=== PATIENT | female | born 1995 | race Caucasian/White ===

== ENCOUNTER 2016-07-06 03:40 | Emergency (ER) | payer OTHER ==
[2016-07-06] MEDS ORDERED: MORPHINE SULFATE 10 MG/ML SYRINGE IM STA (04:00)
--- NOTE | 2016-07-06 04:27 | ED ---
General Adult HPI - General Chief complaint: Fall Stated complaint: Fall/Head Injury Time Seen by Provider: 07/06/16 03:57 Source: patient, RN notes reviewed, old records reviewed Mode of arrival: ambulatory Limitations: no limitations - History of Present Illness Initial comments: This is a 20-year-old female here today for evaluation. Patient presents today for evaluation of fall. Follow head injury. Most of consciousness no drugs or alcohol. Patient complaining of posterior head and neck pain. Patient states she does have welt and hematomata back of her head no bleeding. Again no other complaints of pain or injury anywhere else, fall from standing in the table hitting the back of her head. - Related Data Home Medications Medication Instructions Recorded Confirmed No Known Home Medications [No 07/06/16 07/06/16 Known Home Medications] Allergies Allergy/AdvReac Type Severity Reaction Status Date / Time No Known Allergies Allergy Verified 07/06/16 03:56 Review of Systems ROS Statement: Those systems with pertinent positive or pertinent negative responses have been documented in the HPI. ROS Other: All systems not noted in ROS Statement are negative. Past Medical History Past Medical History: No Reported History History of Any Multi-Drug Resistant Organisms: None Reported Past Surgical History: Appendectomy Past Anesthesia/Blood Transfusion Reactions: No Reported Reaction Past Psychological History: No Psychological Hx Reported Smoking Status: Former smoker Past Alcohol Use History: None Reported Past Drug Use History: None Reported General Exam Limitations: no limitations General appearance: alert, in no apparent distress Head exam: Present: normocephalic, normal inspection. Absent: atraumatic ( Posterior cephalhematoma) Eye exam: Present: normal appearance, PERRL, EOMI. Absent: scleral icterus, conjunctival injection, periorbital swelling ENT exam: Present: normal exam, mucous membranes moist Neck exam: Present: normal inspection. Absent: tenderness, meningismus, lymphadenopathy Respiratory exam: Present: normal lung sounds bilaterally. Absent: respiratory distress, wheezes, rales, rhonchi, stridor Cardiovascular Exam: Present: regular rate, normal rhythm, normal heart sounds. Absent: systolic murmur, diastolic murmur, rubs, gallop, clicks GI/Abdominal exam: Present: soft, normal bowel sounds. Absent: distended, tenderness, guarding, rebound, rigid Extremities exam: Present: normal inspection, full ROM, normal capillary refill. Absent: tenderness, pedal edema, joint swelling, calf tenderness Back exam: Present: normal inspection Neurological exam: Present: alert, oriented X3, CN II-XII intact Psychiatric exam: Present: normal affect, normal mood Skin exam: Present: warm, dry, intact, normal color. Absent: rash Course Vital Signs 07/06/16 03:53 Temperature 99.7 F H Pulse Rate 100 Respiratory 16 Rate Blood Pressure 126/86 O2 Sat by Pulse 98 Oximetry - Reevaluation(s) Reevaluation #1: 07/06/16 04:27 Pain and headache are improved Medical Decision Making - Medical Decision Making 20 female here status post fall, troponin finding head, posterior occipital hematoma, no bleeding, CT brain and C-spine are negative for injury, pain is improved and patient be discharged home, to take Motrin and Tylenol for pain at home - Radiology Data Radiology results: report reviewed (CT brain and C-spine negative for acute disease), image reviewed Disposition Clinical Impression: Fall, Head injury, Hematoma of occipital surface of head Disposition: HOME SELF-CARE Condition: Good Instructions: Head Injury (ED), Hematoma (ED) Referrals: None,Stated [Primary Care Provider] - 1-2 days
--- NOTE | 2016-07-06 04:34 | CT ---
EXAMINATION TYPE: CT brain armando wo con DATE OF EXAM: 07/06/2016 4:18 AM COMPARISON: NONE HISTORY: pt was "rough-housing" and hit posterior head on table, no LOC CT DLP: head:1072.30 body:280.20 mGycm Automated exposure control for dose reduction was used. TECHNIQUE: CT scan of the head and cervical spine are performed without contrast. FINDINGS: Ventricles and sulci appear normal. There is no mass effect nor midline shift. There is n o sign of intracranial hemorrhage. Calvarium is intact. The cervical vertebra have normal alignment. Posterior elements are intact. Disc spaces are well-main tained. Skull base appears intact. There is no evidence for fracture. IMPRESSION: Normal CT scan of the brain. Normal CT scan of the cervical spine.
[2016-07-06 05:04] VITALS: BP 129/88; PULSE 85; RESP 18; TEMP 97.8
== END 2016-07-06 05:30 | disposition home or self-care (01) ==
LOC: EC 03:40
DX: S00.03XA Contusion of scalp, initial encounter (principal); M54.2 Cervicalgia; Z87.891 Personal history of nicotine dependence; W01.198A Fall on same level from slipping, tripping and stumbling with subsequent striking against other object, initial encounter; Y92.009 Unspecified place in unspecified non-institutional (private) residence as the place of occurrence of the external cause
CPT/HCPCS: 72125; 70450; 99284; 96372; J2270

== ENCOUNTER 2017-06-20 16:18 | Emergency (ER) | payer OTHER ==
[2017-06-20 16:24] VITALS: RESP 18
[2017-06-20] MEDS ORDERED: MAG HYDROX/AL HYDROX/SIMETH 30 ML, HYOSCYAMINE ELIXIR 10 ML, CIMETIDINE HCL 300 MG, LID... PO STA ×4 (17:31)
--- NOTE | 2017-06-20 17:36 | ED ---
General Adult HPI - General Chief complaint: Chest Pain Stated complaint: Chest Pain Time Seen by Provider: 06/20/17 17:20 Source: patient, RN notes reviewed Mode of arrival: ambulatory Limitations: no limitations - History of Present Illness Initial comments: 21-year-old female presents to the emergency department with a chief complaint of a chest pain. in the epigastric area and radiates on the chest. She states that she's had this on and off for the last month. She has had some episodes of vomiting with it. She states coughing seems to make it worse. Patient resources well. She states that she has no shortness of breath with this. She denies any health history. She states that she hasn't had any fever chills with it. She states there is no family significant history of young age of chest issues. She states she was concerned because he continues to want for the last month or so so she thought that she should be evaluated. Patient states that she does nurses worsen in relation to food. Patient denies any recent fever, chills, shortness of breath, back pain, numbness or tingling, dysuria or hematuria, constipation or diarrhea, headaches or visual changes, or any other current symptoms. - Related Data Previous Rx's Medication Instructions Recorded Famotidine [Pepcid] 20 mg PO DAILY #10 tablet 06/20/17 Allergies Allergy/AdvReac Type Severity Reaction Status Date / Time No Known Allergies Allergy Verified 06/20/17 17:21 Review of Systems ROS Statement: Those systems with pertinent positive or pertinent negative responses have been documented in the HPI. ROS Other: All systems not noted in ROS Statement are negative. Past Medical History Past Medical History: No Reported History History of Any Multi-Drug Resistant Organisms: None Reported Past Surgical History: Appendectomy Past Anesthesia/Blood Transfusion Reactions: No Reported Reaction Past Psychological History: No Psychological Hx Reported Smoking Status: Current every day smoker Past Alcohol Use History: None Reported Past Drug Use History: None Reported General Exam - General Exam Comments Initial Comments: General: The patient is awake and alert, in no distress, and does not appear acutely ill. Eye: Pupils are equal, round and reactive to light. Ears, nose, mouth and throat: There are moist mucous membranes. Neck: The neck is supple, there is no tenderness. Cardiovascular: There is a regular rate and rhythm. No murmur, rub or gallop is appreciated. Respiratory: Lungs are clear to auscultation, respirations are non-labored, breath sounds are equal. No wheezes, stridor, rales, or rhonchi. Gastrointestinal: Soft, non-distended, non-tender abdomen without masses or organomegaly noted. There is no rebound or guarding present. No CVA tenderness. Bowel sounds are unremarkable. Back: There is no tenderness to palpation in the midline. There is no obvious deformity. No rashes noted. Musculoskeletal: Normal ROM, no tenderness, There is no pedal edema. There is no calf tenderness or swelling. Sensation intact. Pulses equal bilaterally 2+. Neurological: CN II-XII intact, There are no obvious motor or sensory deficits. Coordination appears grossly intact. Speech is normal. Skin: Skin is warm and dry and no rashes or lesions are noted. Psychiatric: Cooperative, appropriate mood & affect, normal judgment. Limitations: no limitations Course Vital Signs 06/20/17 16:21 Temperature 98.1 F Pulse Rate 69 Respiratory 18 Rate Blood Pressure 140/89 O2 Sat by Pulse 98 Oximetry EKG Findings - EKG Comments: EKG Findings:: Bradycardia, sinus rhythm with sinus arrhythmia 54 bpm, right ribs axis, no atopy, no S-T depressions or elevations, Medical Decision Making - Medical Decision Making 21-year-old female presents to the emergency Department chief complaint of a chest type discomfort. At this time symptoms have improved with the medication. She states she's feeling much better. EKG and x-rays have been reviewed. I was summoned discussed follow-up return parameters all questions. Patient states that she understood and she is agreement this plan. At this time she'll be discharged. - Radiology Data Radiology results: report reviewed, image reviewed Disposition Clinical Impression: GERD (gastroesophageal reflux disease), Atypical chest pain Disposition: HOME SELF-CARE Condition: Stable Instructions: Gastroesophageal Reflux Disease (ED) Additional Instructions: Please use medication as discussed. Please follow up with family doctor if symptoms have not improved over the next two days. Please return to the emergency room if your symptoms increase or worsen or for any other concerns. Prescriptions: Famotidine [Pepcid] 20 mg PO DAILY #10 tablet Referrals: Jennifer Malave MD [STAFF PHYSICIAN] - 1-2 days Time of Disposition: 18:52
--- NOTE | 2017-06-20 18:35 | XR ---
EXAMINATION TYPE: XR chest 2V DATE OF EXAM: 06/20/2017 COMPARISON: Chest x-ray July 28, 1997 HISTORY: Chest pain for 2 months. TECHNIQUE: Frontal and lateral views of the chest are obtained. FINDINGS: There is no focal air space opacity, pleural effusion, or pneumothorax seen. The cardiac silhouette size is within normal limits. The osseous structures are intact. IMPRESSION: No suspicious acute process.
[2017-06-20 19:04] VITALS: BP 131/86; PULSE 66; TEMP 97.7
== END 2017-06-20 19:04 | disposition home or self-care (01) ==
LOC: EC 16:18
DX: K21.9 Gastro-esophageal reflux disease without esophagitis (principal); F17.200 Nicotine dependence, unspecified, uncomplicated
CPT/HCPCS: 71046; 93005; 99285

== ENCOUNTER 2018-05-31 06:45 | Inpatient (IN) | payer OTHER ==
--- NOTE | 2018-05-31 07:09 | P.PROBDLV ---
Vaginal Delivery Note - . Vaginal Delivery Note: Normal spontaneous vaginal delivery viable male infant Apgars 8 and 8 delivery time is 0652 hours. Please see dictated H&P in regards to this patient's admission. Brief summary this is a 22-year-old 2 para 1 female unknown last menstrual period unknown gestational age who presented in transfer by EMS from [facility] in active labor. Patient is transferred from the stretcher to her bed and is pushing uncontrollably. In talking to the patient she has unknown gestational age and states she did not know she was . She stated she had a previous vaginal delivery at Dr. Gordon. Patient is 8 cm dilated on admission and is thrashing around uncontrollably. An IV is placed and patient continues to push the head to the perineum. Posterior perineum was supported we have controlled delivery of infant's head over the perineum. Patient continues to push uncontrollably and deliver is a viable male Apgars 8 and 8 delivery time is 0652 hours. Infant has spontaneous respirations and good cry and grossly appears normal. This does appear to be term. After delivery of the the umbilical cord is doubly clamped and cut. The infant is then taken to the warmer and is doing well but then taken to special care due to unknown gestational age. Cord blood is obtained. Placenta spontaneously delivered intact. There are no lacerations and no repair. All counts are correct 3. There are no complications.
[2018-05-31] MEDS ORDERED: TERBUTALINE 1 MG/ML VIAL SQ PRN (07:11)
[2018-05-31] MEDS ORDERED: METHYLERGONOVINE 0.2 MG/ML 1 ML AMP IM PRN (07:11)
[2018-05-31] MEDS ORDERED: CARBOPROST TROMETHAMINE 250 MCG/ML 1 ML AMP IM PRN (07:11)
[2018-05-31] MEDS ORDERED: OXYTOCIN 10 UNIT/ML 1 ML VIAL IM PRN (07:11)
[2018-05-31] MEDS ORDERED: LIDOCAINE 0.5% (PF) 5 MG/ML (50 ML SDV) SQ PRN (07:11)
[2018-05-31] MEDS ORDERED: OXYTOCIN 20 UNITS/1000 ML NS 1,000 ML IV SCH (07:15)
[2018-05-31] MEDS ORDERED: LACTATED RINGERS 1,000 ML IV SCH (07:15)
--- NOTE | 2018-05-31 07:18 | P.HPOB ---
History of Present Illness H&P Date: 05/31/18 Chief Complaint: Pain in labor Please note this to dictated H&P is done after the delivery because the patient presented in precipitous labor and delivered prior to any dictation. This is a 22-year-old 2 para 1 female unknown last menstrual period and unknown gestational age who presents in transit by EMS from [facility] with complaints of contractions. Patient's had no care. She indicated to me that she did not know that she was . Patient apparently has been having pain all evening and went to [facility] was found to be in active labor and subsequently transferred here to the emergency department. I requested the patient come directly to labor and delivery. Patient states that her last Dr. Gordon and she had a term vaginal delivery. She denies any past medical history. Past Medical History Past Medical History: No Reported History History of Any Multi-Drug Resistant Organisms: None Reported Past Surgical History: Appendectomy Past Anesthesia/Blood Transfusion Reactions: No Reported Reaction Past Psychological History: No Psychological Hx Reported Smoking Status: Former smoker Past Alcohol Use History: None Reported Past Drug Use History: None Reported Medications and Allergies Home Medications Medication Instructions Recorded Confirmed Type No Known Home Medications 05/31/18 05/31/18 History Allergies Allergy/AdvReac Type Severity Reaction Status Date / Time No Known Allergies Allergy Verified 05/31/18 07:11 Exam Intake and Output 05/30/18 05/31/18 05/31/18 22:59 06:59 14:59 Other: Weight 68.039 kg - OBG Physical Exam Cervix: Patient admission was 8 cm dilated. Assessment and Plan Assessment: This is a 22-year-old 2 para 1 female unknown gestational age in active labor. Patient on admission was pushing uncontrollably and had apparently removed her IV. IV is placed and patient pushes uncontrollably and delivery is a viable male . Plan is to check blood work, toxicology screen, alert patient care associate's as to the unknown gestational age, alert social work case manager, and continue now with routine care. (1) Active labor Current Visit: Yes Status: Acute Code(s): [id number] - SNOMED Code(s): 08008600 (2) with fetus of unknown gestational age Current Visit: Yes Status: Acute Code(s): Z34.90 - ENCNTR FOR SUPRVSN OF NORMAL , UNSP, UNSP TRIMESTER SNOMED Code(s): 212918603
[2018-05-31 07:26] LABS: Basophils # (A) 0.1 k/uL (0-0.2); Basophils % (A) 0 %; Eosinophils # (A) 0.2 k/uL (0-0.7); Eosinophils % (A) 1 %; HCT 39.5 % (34.0-46.0); Lymphocytes # (A) 3.4 k/uL (1.0-4.8); Lymphocytes % (A) 19 %; MCH 29.3 pg (25.0-35.0); MCHC 32.9 g/dL (31.0-37.0); MCV 88.9 fL (80.0-100.0); Mean Platelet Volume 8.3; Monocytes # (A) 1.3 k/uL (0-1.0); Monocytes % (A) 7 %; Neutrophils # (A) 12.8 k/uL (1.3-7.7); Neutrophils % (A) 70 %; Platelet Count 374 k/uL (150-450); RBC 4.44 m/uL (3.80-5.40); RDW 13.1 % (11.5-15.5); WBC 18.2 k/uL (3.8-10.6)
[2018-05-31 07:30] LABS: Appearance,Urine Clear (Clear); Bilirubin,Urine Negative (Negative); Blood,Urine Large (Negative); Color,Urine Yellow; Glucose,Urine (UA) Negative (Negative); Ketones,Urine Negative (Negative); Leukocyte Esterase,Urine Negative (Negative); Mucus,Urine Rare /hpf; Nitrite,Urine Negative (Negative); PH, Urine 5.5 (5.0-8.0); Protein,Urine Negative (Negative); RBC,Urine >182 /hpf (0-5); Specific Gravity,Urine 1.018 (1.001-1.035); Squamous Epithelial Cell,Urine <1 /hpf (0-4); Urobilinogen,Urine <2.0 mg/dL (<2.0); WBC,Urine 2 /hpf (0-5)
[2018-05-31 07:35] VITALS: BMI 27.4
[2018-05-31 07:35] LABS: Amphetamine Screen,Urine Not Detected (NotDetected); Barbiturate Screen,Urine Not Detected (NotDetected); Benzodiazepines Screen,Urine Not Detected (NotDetected); Cocaine Screen,Urine Not Detected (NotDetected); Methadone Screen, Urine Not Detected (NotDetected); Opiate Screen,Urine Not Detected (NotDetected); Oxycodone Screen, Urine Not Detected (NotDetected); Phencyclidine Screen,Urine Not Detected (NotDetected); Tricyclic Antidepressant,Urine Not Detected (NotDetected); Urn Cannabinoid Scrn Detected (NotDetected)
[2018-05-31] MEDS ORDERED: INFLUENZA VACCINE (6 MOS+) 60 MCG/0.5 ML SYRINGE IM ONE (07:39)
[2018-05-31] MEDS ORDERED: DIPH,PERTUS(ACELL)TETVAC-LF 0.5 ML VIAL IM ONE (07:39)
[2018-05-31 20:37] LABS: HIV 1 AB Non-Reactive (Non-Reactive); HIV AB P24 Non-Reactive (Non-Reactive); HIV P24 AG Non-Reactive (Non-Reactive)
[2018-06-01 02:12] VITALS: RESP 18
--- NOTE | 2018-06-01 06:19 | P.PNOBGVD ---
Subjective - Subjective Patient reports: Reports appetite normal, Reports voiding normally, Reports pain well controlled, Reports ambulating normally : doing well Objective - Latest Vital Signs Latest vital signs: Vital Signs Temp Pulse Resp BP Pulse Ox 06/01/18 01:00 98.0 F 60 18 118/64 05/31/18 20:00 98.1 F 65 16 116/73 05/31/18 16:00 98.5 F 76 18 132/73 96 05/31/18 12:00 98.8 F 76 18 121/73 98 05/31/18 09:10 98.3 F 74 18 118/76 05/31/18 08:40 97.6 F 87 18 126/76 05/31/18 08:10 73 121/67 05/31/18 07:55 98.7 F 76 18 132/76 05/31/18 07:40 72 129/76 05/31/18 07:25 98.7 F 82 18 137/81 05/31/18 07:10 97.5 F L 78 18 135/83 05/31/18 07:07 97.5 F L 78 18 135/83 Intake and Output 05/31/18 05/31/18 06/01/18 14:59 22:59 06:59 Other: # Voids 1 Weight 68.039 kg - Exam Lungs: bilateral: normal Chest: Normal S1, Normal S2 Extremities: Present: normal Abdomen: Present: normal appearance, soft Uterus: Present: normal, firm - Labs Labs: Abnormal Lab Results - Last 24 Hours (Table) 05/31/18 05/31/18 Range/Units 06:50 06:56 WBC 18.2 H (3.8-10.6) k/uL Neutrophils # 12.8 H (1.3-7.7) k/uL Monocytes # 1.3 H (0-1.0) k/uL Urine Blood Large H (Negative) Urine RBC >182 H (0-5) /hpf Urine Mucus Rare H (None) /hpf U Marijuana (THC) Screen Detected H (NotDetected) Assessment and Plan Assessment: day #1. Patient is resting without complaints. Vital signs are stable and she is afebrile. She is having normal lochia. Patient was seen by criminal justice social worker yesterday and they're continuing to evaluate her. Baby is still being watched in special care but doing very well. Patient requests to go home today and she is felt to be stable for discharge home. Plan is to continue routine care and discharge home later this morning. (1) Active labor Current Visit: Yes Status: Acute Code(s): [id number] - SNOMED Code(s): 03800326 (2) with fetus of unknown gestational age Current Visit: Yes Status: Acute Code(s): Z34.90 - ENCNTR FOR SUPRVSN OF NORMAL , UNSP, UNSP TRIMESTER SNOMED Code(s): 959837042
--- NOTE | 2018-06-01 06:25 | P.DS ---
Providers Date of admission: 05/31/18 06:45 Expected date of discharge: 06/01/18 Attending physician: Garland Bazzi Primary care physician: Stated None - Discharge Diagnosis(es) (1) Active labor Current Visit: Yes Status: Acute (2) with fetus of unknown gestational age Current Visit: Yes Status: Acute Hospital Course: Please see dictated H&P delivery note on this patient's admission. Brief summary this is a 22-year-old 2 para 1 female unknown gestational age who presented via EMS to this hospital in active advanced labor. Patient had no care. Patient quickly went on and delivery viable male infant. Please see dictated delivery note. developmental services worker was contacted. On post day #1 patient did want to go home as felt be stable for discharge home follow up in my office 6 weeks. Procedures: Normal spontaneous vaginal delivery Patient Condition at Discharge: Good Plan - Discharge Summary New Discharge Prescriptions: New Ibuprofen [Motrin] 600 mg PO Q6HR PRN #40 tab PRN Reason: Cramping Discharge Medication List Ibuprofen [Motrin] 600 mg PO Q6HR PRN #40 tab 06/01/18 [Rx] Follow up Appointment(s)/Referral(s): Garland Bzazi MD [STAFF PHYSICIAN] - 6 Weeks Patient Instructions/Handouts: Vaginal Delivery (DC) Activity/Diet/Wound Care/Special Instructions: No intercourse or anything per vagina for 6 weeks. Please call if any fever, chills, excessive vaginal bleeding, and/or abdominal pain. Discharge Disposition: HOME SELF-CARE
[2018-06-01 10:13] VITALS: BP 128/78; PULSE 69; TEMP 98.4
== END 2018-06-01 10:50 | disposition home or self-care (01) | DRG 807 ==
LOC: 4FBP 06:45
PROVIDERS: ADMIT Obstetrics & Gynecology; ATTEND Obstetrics & Gynecology
PROC: 10E0XZZ Delivery of Products of Conception, External Approach (ICD-10-PCS; principal; 2018-05-31)
PROC: 3E0234Z Introduction of Serum, Toxoid and Vaccine into Muscle, Percutaneous Approach (ICD-10-PCS; 2018-05-31)
PROC: 3E02340 Introduction of Influenza Vaccine into Muscle, Percutaneous Approach (ICD-10-PCS; 2018-05-31)
DX: O62.3 Precipitate labor (principal); Z37.0 Single live birth; Z3A.00 Weeks of gestation of pregnancy not specified; Z87.891 Personal history of nicotine dependence; Z23 Encounter for immunization
CPT/HCPCS: 80306; 81001; 82947; 85025; 86762; 86780; 86850; 86900; 86901; 87340; 87390; 88307; 90471; 90472; 90686; 90715

== ENCOUNTER 2019-11-23 15:01 | Emergency (ER) | payer OTHER ==
[2019-11-23 15:44] VITALS: BP 123/75; PULSE 61; RESP 16; TEMP 99
--- NOTE | 2019-11-23 16:17 | XR ---
Right forearm and right hand : Trauma 2 days prior, pain 2 views of the right forearm and 3 views of the right hand Bone mineralization, joint spaces and alignment are maintained. IMPRESSION: No evident fracture or dislocation of the right elbow or hand.
--- NOTE | 2019-11-23 16:26 | ED ---
Upper Extremity HPI - General Chief Complaint: Extremity Injury, Upper Stated Complaint: Fall Time Seen by Provider: 11/23/19 15:11 Source: patient Mode of arrival: ambulatory Limitations: no limitations - History of Present Illness Initial Comments: 24-year-old female presented for right arm pain right forearm right hand no wrist pain. Patient states she slid down approximately 10 steps she states she did not tumble ruled out. Patient states she was sleepwalking she denies any injury to the chest abdomen lower extremity or back. Patient has no additional complaints she states she simply oozing to the right arm. Patient denies any numbness tingling loss of sensation she denies any weakness of the extremity. Denies injury to head neck denies loss of consciousness or syncopal episode patient states she tripped - Related Data Home Medications Medication Instructions Recorded Confirmed No Known Home Medications 11/23/19 11/23/19 Allergies Allergy/AdvReac Type Severity Reaction Status Date / Time No Known Allergies Allergy Verified 11/23/19 15:46 Review of Systems ROS Statement: Those systems with pertinent positive or pertinent negative responses have been documented in the HPI. ROS Other: All systems not noted in ROS Statement are negative. Past Medical History Past Medical History: No Reported History History of Any Multi-Drug Resistant Organisms: None Reported Past Surgical History: Appendectomy Past Anesthesia/Blood Transfusion Reactions: No Reported Reaction Past Psychological History: No Psychological Hx Reported Smoking Status: Former smoker Past Alcohol Use History: None Reported Past Drug Use History: None Reported - Past Family History Mother Family Medical History: Diabetes Mellitus General Exam - General Exam Comments Initial Comments: General: The patient is awake and alert, in no distress Eye: Pupils are equal, round and reactive to light, extra-ocular movements are intact. No nystagmus. There is normal conjunctiva bilaterally. No signs of icterus. Ears, nose, mouth and throat: There are moist mucous membranes and no oral lesions. Neck: The neck is supple, there is no tenderness or JVD. Cardiovascular: There is a regular rate and rhythm. No murmur, rub or gallop is appreciated. Respiratory: Lungs are clear to auscultation, respirations are non-labored, breath sounds are equal. No wheezes, stridor, rales, or rhonchi. Musculoskeletal: Bruising of left forearm on inspection, no swelling. Normal ROM, no tenderness elbows wrists and finger. Pain to palpation mid forarm. Strength 5/5. Sensation intact. Radila pulses equal bilaterally 2+. No anatomical snuffbox tenderness Neurological: A&O x 3. CN II-XII intact, There are no obvious motor or sensory deficits. Coordination appears grossly intact. Speech is normal. Skin: Skin is warm and dry and no rashes or lesions are noted. Psychiatric: Cooperative, appropriate mood & affect, normal judgment. Limitations: no limitations Course Vital Signs 11/23/19 11/23/19 15:03 15:42 Temperature 98.8 F 99.0 F Pulse Rate 73 61 Respiratory 18 16 Rate Blood Pressure 114/77 123/75 O2 Sat by Pulse 97 100 Oximetry Medical Decision Making - Medical Decision Making 24-year-old female presenting today for chief complaint of rigth forearm pain, hand pain. Neurovascularly intact. Denies any other injuries. No anatomical snuffbox tenderness. Patient's x-rays negative for acute processes a Abbie most likely related soft tissue injury given the area of pain with palpation. Patient has full range motion without pain. Patient discharged appearing well after discussing case wtih Dr. Paul. [place] requesting work note. Disposition Clinical Impression: Forearm pain, Hand pain, right Disposition: HOME SELF-CARE Condition: Good Instructions (If sedation given, give patient instructions): R.I.C.E. Treatment (ED) Additional Instructions: Please use medication as discussed. Please follow-up with family doctor in the next 2 days. Please return to emergency room if the symptoms increase or worsen or for any other concerns. Is patient prescribed a controlled substance at d/c from ED?: No Referrals: None,Stated [Primary Care Provider] - 1-2 days Time of Disposition: 16:25
== END 2019-11-23 16:32 | disposition home or self-care (01) ==
LOC: EC 15:01
DX: M79.631 Pain in right forearm (principal); M79.641 Pain in right hand; Z87.891 Personal history of nicotine dependence
CPT/HCPCS: 99283

== ENCOUNTER 2019-11-29 16:29 | Emergency (ER) | payer OTHER ==
[2019-11-29 16:34] VITALS: BP 121/75; PULSE 94; RESP 16; TEMP 99
[2019-11-29] MEDS ORDERED: ONDANSETRON ODT 4 MG TAB PO STA (17:02)
--- NOTE | 2019-11-29 17:07 | ED ---
General Adult HPI - General Chief complaint: Recheck/Abnormal Lab/Rx Stated complaint: bruise on arm Time Seen by Provider: 11/29/19 16:35 Source: patient Mode of arrival: ambulatory - History of Present Illness Initial comments: Patient is a 24 showed female with no past medical history who presents to the emergency room with reported bruise to her left elbow. She states that she was taking a walk with her boyfriend when he noted that she had a bruise is fairly large in size. She denies any trauma. Patient then began examining her body noted multiple bruises to her lower extremities which were different stages of healing. Denies any recent trauma. Reports to mild pain with range of motion of her left elbow. Denies history of clotting disorders. Denies any syncopal episodes. Patient denies any abuse at home. Patient does report to mild nausea with an episode of vomiting today. States there is a possibility she could be . Denies dysuria, hematuria or difficulty voiding. admits increased frequency of voiding. Denies any rectal bleeding. No hematemesis. Patient denies fevers or chills. There are no other alleviating, precipitating or modifying factors - Related Data Previous Rx's Medication Instructions Recorded Cephalexin [Keflex] 500 mg PO Q12HR #14 cap 11/29/19 Allergies Allergy/AdvReac Type Severity Reaction Status Date / Time No Known Allergies Allergy Verified 11/29/19 17:33 Review of Systems ROS Statement: Those systems with pertinent positive or pertinent negative responses have been documented in the HPI. ROS Other: All systems not noted in ROS Statement are negative. Past Medical History Past Medical History: No Reported History History of Any Multi-Drug Resistant Organisms: None Reported Past Surgical History: Appendectomy Past Anesthesia/Blood Transfusion Reactions: No Reported Reaction Past Psychological History: No Psychological Hx Reported Smoking Status: Former smoker Past Alcohol Use History: None Reported Past Drug Use History: None Reported - Past Family History Mother Family Medical History: Diabetes Mellitus Course Vital Signs 11/29/19 16:31 Temperature 99.0 F Pulse Rate 94 Respiratory 16 Rate Blood Pressure 121/75 O2 Sat by Pulse 98 Oximetry Medical Decision Making - Medical Decision Making Upon arrival the patient was placed into room 25. Thorough history and physical exam was performed. Patient does have bruising multiple healing stages all over her lower extremities. She also has a new or bruise located over the left medial elbow. The patient's boyfriend is asked to leave the room. We did discuss trauma with the patient for which she denies any trauma or abuse. Patient reports to nausea with concern for therefore laboratory st udies were conducted and the patient provided urine sample. Laboratory studies demonstrated with blood cell count of 13.8. Any function is normal at 0.8. Urine is positive for nitrates, 8 red blood cells, 54 white blood cells. Specimen was not a clean catch. The patient is reporting increased urination I did recommend treatment. Patient was given a dose of Keflex in the ER and a prescription was sent to the pharmacy. Patient's clotting factors are all normal. Hemoglobin is 15.5. Instructed the patient follow up with her primary care physician in regards to her symptoms and easy bruising. Return to the emergency room for any new or worsening symptoms. Patient was in agreement with the treatment plan and she was discharged home in stable condition - Lab Data Result diagrams: 11/29/19 17:11 11/29/19 17:11 Lab Results 11/29/19 11/29/19 11/29/19 Range/Units 17:11 17:11 17:11 WBC 13.8 H (3.8-10.6) k/uL RBC 5.47 H (3.80-5.40) m/uL Hgb 15.5 (11.4-16.0) gm/dL Hct 48.1 H (34.0-46.0) % MCV 87.9 (80.0-100.0) fL MCH 28.4 (25.0-35.0) pg MCHC 32.3 (31.0-37.0) g/dL RDW 13.0 (11.5-15.5) % Plt Count 331 (150-450) k/uL Neutrophils % 81 % Lymphocytes % 11 % Monocytes % 5 % Eosinophils % 1 % Basophils % 1 % Neutrophils # 11.1 H (1.3-7.7) k/uL Lymphocytes # 1.6 (1.0-4.8) k/uL Monocytes # 0.7 (0-1.0) k/uL Eosinophils # 0.2 (0-0.7) k/uL Basophils # 0.1 (0-0.2) k/uL PT (9.0-12.0) sec INR (<1.2) APTT (22.0-30.0) sec Sodium (137-145) mmol/L Potassium (3.5-5.1) mmol/L Chloride (98-107) mmol/L Carbon Dioxide (22-30) mmol/L Anion Gap mmol/L BUN (7-17) mg/dL Creatinine (0.52-1.04) mg/dL Est GFR (CKD-EPI)AfAm (>60 ml/min/1.73 sqM) Est GFR (CKD-EPI)NonAf (>60 ml/min/1.73 sqM) Glucose (74-99) mg/dL Calcium (8.4-10.2) mg/dL Total Bilirubin (0.2-1.3) mg/dL AST (14-36) U/L ALT (4-34) U/L Alkaline Phosphatase (38-126) U/L Total Protein (6.3-8.2) g/dL Albumin (3.5-5.0) g/dL Urine Color Yellow Urine Appearance Cloudy H (Clear) Urine pH 6.0 (5.0-8.0) Ur Specific Sterling 1.026 (1.001-1.035) Urine Protein 1+ H (Negative) Urine Glucose (UA) Negative (Negative) Urine Ketones Trace H (Negative) Urine Blood Negative (Negative) Urine Nitrite Positive H (Negative) Urine Bilirubin Negative (Negative) Urine Urobilinogen <2.0 (<2.0) mg/dL Ur Leukocyte Esterase Large H (Negative) Urine RBC 8 H (0-5) /hpf Urine WBC 54 H (0-5) /hpf Ur Squamous Epith Cells 22 H (0-4) /hpf Urine Bacteria Moderate H (None) /hpf Hyaline Casts 46 H (0-2) /lpf Urine Mucus Many H (None) /hpf Urine HCG, Qual Not Detected (Not Detectd) 11/29/19 11/29/19 Range/Units 17:11 17:11 WBC (3.8-10.6) k/uL RBC (3.80-5.40) m/uL Hgb (11.4-16.0) gm/dL Hct (34.0-46.0) % MCV (80.0-100.0) fL MCH (25.0-35.0) pg MCHC (31.0-37.0) g/dL RDW (11.5-15.5) % Plt Count (150-450) k/uL Neutrophils % % Lymphocytes % % Monocytes % % Eosinophils % % Basophils % % Neutrophils # (1.3-7.7) k/uL Lymphocytes # (1.0-4.8) k/uL Monocytes # (0-1.0) k/uL Eosinophils # (0-0.7) k/uL Basophils # (0-0.2) k/uL PT 10.5 (9.0-12.0) sec INR 1.0 (<1.2) APTT 23.0 (22.0-30.0) sec Sodium 137 (137-145) mmol/L Potassium 4.4 (3.5-5.1) mmol/L Chloride 108 H (98-107) mmol/L Carbon Dioxide 17 L (22-30) mmol/L Anion Gap 12 mmol/L BUN 16 (7-17) mg/dL Creatinine 0.82 (0.52-1.04) mg/dL Est GFR (CKD-EPI)AfAm >90 (>60 ml/min/1.73 sqM) Est GFR (CKD-EPI)NonAf >90 (>60 ml/min/1.73 sqM) Glucose 86 (74-99) mg/dL Calcium 9.8 (8.4-10.2) mg/dL Total Bilirubin 0.8 (0.2-1.3) mg/dL AST 23 (14-36) U/L ALT 14 (4-34) U/L Alkaline Phosphatase 46 (38-126) U/L Total Protein 7.5 (6.3-8.2) g/dL Albumin 4.6 (3.5-5.0) g/dL Urine Color Urine Appearance (Clear) Urine pH (5.0-8.0) Ur Specific Sterling (1.001-1.035) Urine Protein (Negative) Urine Glucose (UA) (Negative) Urine Ketones (Negative) Urine Blood (Negative) Urine Nitrite (Negative) Urine Bilirubin (Negative) Urine Urobilinogen (<2.0) mg/dL Ur Leukocyte Esterase (Negative) Urine RBC (0-5) /hpf Urine WBC (0-5) /hpf Ur Squamous Epith Cells (0-4) /hpf Urine Bacteria (None) /hpf Hyaline Casts (0-2) /lpf Urine Mucus (None) /hpf Urine HCG, Qual (Not Detectd) Disposition Clinical Impression: Ecchymosis, Acute UTI, Elbow pain, left Disposition: HOME SELF-CARE Condition: Stable Instructions (If sedation given, give patient instructions): Urinary Tract Infection in Women (ED) Additional Instructions: Please follow-up with primary care physician. Return to the emergency room for any new or worsening symptoms Prescriptions: Cephalexin [Keflex] 500 mg PO Q12HR #14 cap Is patient prescribed a controlled substance at d/c from ED?: No Referrals: None,Stated [Primary Care Provider] - 1-2 days Time of Disposition: 18:02
[2019-11-29 17:22] LABS: Basophils # (A) 0.1 k/uL (0-0.2); Basophils % (A) 1 %; Eosinophils # (A) 0.2 k/uL (0-0.7); Eosinophils % (A) 1 %; HCT 48.1 % (34.0-46.0); HGB 15.5 gm/dL (11.4-16.0); Lymphocytes # (A) 1.6 k/uL (1.0-4.8); Lymphocytes % (A) 11 %; MCH 28.4 pg (25.0-35.0); MCHC 32.3 g/dL (31.0-37.0); MCV 87.9 fL (80.0-100.0); Mean Platelet Volume 7.6; Monocytes # (A) 0.7 k/uL (0-1.0); Monocytes % (A) 5 %; Neutrophils # (A) 11.1 k/uL (1.3-7.7); Neutrophils % (A) 81 %; Platelet Count 331 k/uL (150-450); RBC 5.47 m/uL (3.80-5.40); WBC 13.8 k/uL (3.8-10.6)
[2019-11-29 17:28] LABS: Appearance,Urine Cloudy (Clear); Bacteria,Urine Moderate /hpf; Bilirubin,Urine Negative (Negative); Blood,Urine Negative (Negative); Color,Urine Yellow; Glucose,Urine (UA) Negative (Negative); Hyaline Casts,Urine 46 /lpf (0-2); Ketones,Urine Trace (Negative); Leukocyte Esterase,Urine Large (Negative); Mucus,Urine Many /hpf; Nitrite,Urine Positive (Negative); Protein,Urine 1+ (Negative); RBC,Urine 8 /hpf (0-5); Specific Gravity,Urine 1.026 (1.001-1.035); Squamous Epithelial Cell,Urine 22 /hpf (0-4); Urobilinogen,Urine <2.0 mg/dL (<2.0); WBC,Urine 54 /hpf (0-5)
[2019-11-29 17:31] LABS: ALT 14 U/L (4-34); AST 23 U/L (14-36); African American GFR (CKD) >90 (>60 ml/min/1.73 sqM); Albumin 4.6 g/dL (3.5-5.0); Alkaline Phosphatase 46 U/L (38-126); Anion Gap 12 mmol/L; Blood Urea Nitrogen 16 mg/dL (7-17); Calcium 9.8 mg/dL (8.4-10.2); Carbon Dioxide 17 mmol/L (22-30); Chloride 108 mmol/L (98-107); Glucose 86 mg/dL (74-99); Non-African American GFR(CKD) >90 (>60 ml/min/1.73 sqM); Potassium 4.4 mmol/L (3.5-5.1); Prothrombin Time 10.5 sec (9.0-12.0); Sodium 137 mmol/L (137-145); Total Bilirubin 0.8 mg/dL (0.2-1.3); Total Protein 7.5 g/dL (6.3-8.2)
--- NOTE | 2019-11-29 17:34 | XR ---
EXAMINATION TYPE: XR elbow complete LT DATE OF EXAM: 11/29/2019 COMPARISON: None HISTORY: Pain and bruising TECHNIQUE: FINDINGS: 3 views are obtained. Joint spaces are normal. There is no sign of elbow joint effusion. I see no fracture nor dislocation. IMPRESSION: Negative left elbow exam. No fracture.
[2019-11-29] MEDS ORDERED: cefTRIAXone IN SWFI 1,000 MG/10 ML SYRINGE IVP STA (17:53)
[2019-11-29] MEDS ORDERED: CEPHALEXIN 500 MG CAP PO STA (17:59)
== END 2019-11-29 18:25 | disposition home or self-care (01) ==
LOC: EC 16:29
DX: S50.02XA Contusion of left elbow, initial encounter (principal); N39.0 Urinary tract infection, site not specified; Z87.891 Personal history of nicotine dependence; X58.XXXA Exposure to other specified factors, initial encounter
CPT/HCPCS: 36415; 80053; 81001; 81025; 85025; 85610; 85730; 87086; 99283